=== PATIENT | male | born 1990 | race Caucasian/White ===

== ENCOUNTER 2017-05-12 21:27 | Emergency (ER) | payer MEDICAID ==
[~2017-05-12] VITALS: Ht 180.3 cm; Wt 121.0 kg
[~2017-05-12 21:27] MED LIST: ALBU8.5H8 IH; CYCL-1 PO; ESCI20TA PO; GABA600T2 PO; OLAN20TA16 PO; OLAN20TA3 PO; QUET25TA PO
[2017-05-12 21:41] VITALS: BP 133/90
[2017-05-12] MEDS ORDERED: OLAN5TAB3 PO (22:24)
[2017-05-12] MEDS ORDERED: CYCL-1 PO (22:24)
[2017-05-12] MEDS ORDERED: ketorolac trometh inj. 60 MG/2 ML VIAL IM ONE (22:25)
[2017-05-12] MEDS ORDERED: LORazepam 1 MG tablet PO ONE (23:05)
== END 2017-05-12 23:19 | disposition home or self-care (01) ==
LOC: ER 21:28
DX: S13.4XXA Sprain of ligaments of cervical spine, initial encounter (principal); F41.9 Anxiety disorder, unspecified; F31.9 Bipolar disorder, unspecified; F20.9 Schizophrenia, unspecified; F15.10 Other stimulant abuse, uncomplicated; Z88.6 Allergy status to analgesic agent; V89.2XXA Person injured in unspecified motor-vehicle accident, traffic, initial encounter; Y93.89 Activity, other specified; Y92.89 Other specified places as the place of occurrence of the external cause; Y99.8 Other external cause status
CPT/HCPCS: 99283; J1885; 99282

== ENCOUNTER 2017-05-23 15:42 | Emergency (ER) | payer MEDICAID ==
[~2017-05-23] VITALS: Ht 180.3 cm; Wt 123.0 kg
[~2017-05-23 15:42] MED LIST changes: +OLAN5TAB3 PO
[2017-05-23] MEDS ORDERED: diphenhydrAMINE 25mg capsule PO ONE (17:45)
[2017-05-23] MEDS ORDERED: LIDOcaine 1% 30ml preserv. free vial IJ ONE (17:45)
[2017-05-23] MEDS ORDERED: acetaminophen 325mg tablet PO ONE (17:45)
[2017-05-23] MEDS ORDERED: bacitracin 15gm ointment TP ONE (18:50)
[2017-05-23] MEDS ORDERED: CEPH-572 PO (18:54)
[2017-05-23] MEDS ORDERED: SULF1TAB49 PO (18:54)
[2017-05-23 19:09] VITALS: BP 159/52
== END 2017-05-23 19:10 | disposition home or self-care (01) ==
LOC: ER 15:42
DX: L60.0 Ingrowing nail (principal); G89.29 Other chronic pain; F15.10 Other stimulant abuse, uncomplicated; Z88.6 Allergy status to analgesic agent; Z79.899 Other long term (current) drug therapy
CPT/HCPCS: 11730; 99284; A6449; J3490; Q0163; 99283

== ENCOUNTER 2017-08-20 14:06 | Emergency (ER) | payer MEDICAID ==
[~2017-08-20] VITALS: Ht 180.3 cm; Wt 127.3 kg
[2017-08-20] MEDS ORDERED: CYCL-1 PO (14:21)
[2017-08-20 14:32] VITALS: BP 128/89
== END 2017-08-20 14:34 | disposition home or self-care (01) ==
LOC: ER 14:06
DX: S39.012A Strain of muscle, fascia and tendon of lower back, initial encounter (principal); M62.830 Muscle spasm of back; F15.10 Other stimulant abuse, uncomplicated; G89.29 Other chronic pain; X58.XXXA Exposure to other specified factors, initial encounter; Y93.89 Activity, other specified; Y92.89 Other specified places as the place of occurrence of the external cause; Y99.8 Other external cause status
CPT/HCPCS: 99283

== ENCOUNTER 2017-11-11 01:22 | Emergency (ER) | payer MEDICAID ==
[~2017-11-11] VITALS: Ht 180.3 cm; Wt 115.0 kg
[2017-11-11 01:31] VITALS: BP 128/91
[2017-11-11] MEDS ORDERED: OLANZapine 2.5MG tablet PO STA (01:57)
[2017-11-11] MEDS ORDERED: ESCI20TA PO (01:59)
[2017-11-11] MEDS ORDERED: OLAN10TA19 PO (01:59)
[2017-11-11] MEDS ORDERED: citalopram 20mg tablet PO SCH ×2 (02:05→08:00)
== END 2017-11-11 02:21 | disposition home or self-care (01) ==
LOC: ER 01:22
DX: F20.9 Schizophrenia, unspecified (principal); F31.9 Bipolar disorder, unspecified; F41.9 Anxiety disorder, unspecified; G89.29 Other chronic pain; F17.210 Nicotine dependence, cigarettes, uncomplicated; F15.90 Other stimulant use, unspecified, uncomplicated; Z88.6 Allergy status to analgesic agent; Z79.899 Other long term (current) drug therapy
CPT/HCPCS: 99283

== ENCOUNTER 2020-02-08 13:14 | Emergency (ER) | payer MEDICAID ==
[~2020-02-08] VITALS: Ht 180.3 cm; Wt 124.0 kg
[~2020-02-08 13:14] MED LIST changes: +GABA600T13 PO; -GABA600T2 PO; +OLAN10TA19 PO; -OLAN20TA16 PO; +OLAN20TA34 PO
[2020-02-08 13:17] VITALS: BP 148/104
[2020-02-08] MEDS ORDERED: ketorolac tromethamine 15mg/ml inj. IM ONE (13:50)
[2020-02-08] MEDS ORDERED: cyclobenzaprine 10mg tablet PO ONE (13:50)
[2020-02-08] MEDS ORDERED: ORPH100T2 PO (13:56)
[2020-02-08] MEDS ORDERED: IBUP-1984 PO (13:56)
== END 2020-02-08 14:22 | disposition home or self-care (01) ==
LOC: ER 13:15
DX: S39.012A Strain of muscle, fascia and tendon of lower back, initial encounter (principal); G89.29 Other chronic pain; F41.9 Anxiety disorder, unspecified; F31.9 Bipolar disorder, unspecified; F20.9 Schizophrenia, unspecified; F15.90 Other stimulant use, unspecified, uncomplicated; Z88.8 Allergy status to other drugs, medicaments and biological substances; Z88.6 Allergy status to analgesic agent; Z79.899 Other long term (current) drug therapy; X58.XXXA Exposure to other specified factors, initial encounter; Y93.89 Activity, other specified; Y92.89 Other specified places as the place of occurrence of the external cause; Y99.8 Other external cause status
CPT/HCPCS: 96372; 99283; J1885

== ENCOUNTER 2020-03-09 19:53 | Emergency (ER) | payer MEDICAID ==
[~2020-03-09] VITALS: Ht 180.3 cm; Wt 132.0 kg
[~2020-03-09 19:53] MED LIST changes: +ORPH100T2 PO
--- NOTE | 2020-03-09 21:11 | NUR ---
[facility] dispatch called to update. They report the vehicle has been towed. log # [id number].
--- NOTE | 2020-03-09 21:30 | NUR ---
POLI DENSON INQUIRING IF LAW ENFORCEMENT IN ROUTE TO SEE PT. I REPORTED THAT P DISPATCH ONLY INFORMED ME THAT SHE WOULD UPDATE THE OFFICERS ON THIS CASE, SHE WAS UNSURE IF THEY WOULD BE COMING TO INTERVIEW PT. 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
[2020-03-09] MEDS ORDERED: iohexol 350MG/ML 100ml bottle IV ONE (21:52)
[2020-03-09] MEDS ORDERED: orphenadrine citrate 60mg/2ml inj. IM ONE (22:30)
[2020-03-09] MEDS ORDERED: ketorolac tromethamine 15mg/ml inj. IM ONE (22:30)
[2020-03-09] MEDS ORDERED: LIDOcaine 1% W/epiNEPHrine 1:200,000 10ml vial IJ ONE (22:40)
[2020-03-09] MEDS ORDERED: TETanus/Pertussis (Acell)/Diphther VAC/PF (Tdap-Adult) 0.5ml syringe IMVAC ONE (22:40)
[2020-03-09] MEDS ORDERED: LIDOcaine 1% W/epiNEPHrine 1:100,000 20ml vial IJ ONE (22:55)
[2020-03-09] MEDS ORDERED: NAPR-56 PO (23:23)
[2020-03-09] MEDS ORDERED: METH-360 PO (23:23)
[2020-03-09 23:28] VITALS: BP 119/81
== END 2020-03-09 23:29 | disposition home or self-care (01) ==
LOC: ER 19:53
DX: S61.411A Laceration without foreign body of right hand, initial encounter (principal); S29.012A Strain of muscle and tendon of back wall of thorax, initial encounter; G89.29 Other chronic pain; F15.90 Other stimulant use, unspecified, uncomplicated; Z88.6 Allergy status to analgesic agent; Z79.899 Other long term (current) drug therapy; V49.59XA Passenger injured in collision with other motor vehicles in traffic accident, initial encounter; Y93.89 Activity, other specified; Y92.413 State road as the place of occurrence of the external cause; Y99.9 Unspecified external cause status
CPT/HCPCS: 12001; 71260; 72125; 74177; 90471; 90715; 96372; 99285; J1885; J2360; Q9967

== ENCOUNTER 2023-06-02 22:58 | Emergency (ER) | payer MEDICAID ==
[~2023-06-02] VITALS: Ht 172.7 cm; Wt 121.7 kg
[~2023-06-02 22:58] MED LIST changes: +ALBU8.5H17 IH; -ALBU8.5H8 IH; +METH-360 PO; -OLAN10TA19 PO; +OLAN10TA73 PO; -ORPH100T2 PO; +ORPH100T4 PO
[2023-06-02 23:44] VITALS: BP 145/92; PULSE 80; RESP 16; TEMP 98.1; O2SAT 100
== END 2023-06-02 23:47 | disposition home or self-care (01) ==
LOC: ER 22:59
DX: G89.29 Other chronic pain (principal); M54.9 Dorsalgia, unspecified; F31.9 Bipolar disorder, unspecified; F20.9 Schizophrenia, unspecified; F15.10 Other stimulant abuse, uncomplicated; Z79.899 Other long term (current) drug therapy; Z00.8 Encounter for other general examination
CPT/HCPCS: 99281